=== PATIENT | female | born 1945 | race Caucasian/White ===

== ENCOUNTER 2016-11-18 16:16 | Emergency (ER) | payer MEDICARE, OTHER ==
[2016-11-18] MEDS ORDERED: ONDANSETRON 4 MG/2 ML VIAL IVP STA (16:40)
[2016-11-18] MEDS ORDERED: ONDANSETRON 4 MG/2 ML VIAL ONE (16:44)
[2016-11-18] MEDS ORDERED: SODIUM CHLORIDE 0.9% 500 ML IV ONE (18:39)
== END 2016-11-18 19:38 | disposition home or self-care (01) ==
DX: R11.2 Nausea with vomiting, unspecified (principal); R55 Syncope and collapse; I10 Essential (primary) hypertension; E78.00 Pure hypercholesterolemia, unspecified; J44.9 Chronic obstructive pulmonary disease, unspecified; E03.9 Hypothyroidism, unspecified; M81.0 Age-related osteoporosis without current pathological fracture; Z87.891 Personal history of nicotine dependence

== ENCOUNTER 2017-02-17 08:00 | Outpatient (CLI) | payer MEDICARE, OTHER ==
[2017-02-17 13:29] LABS: ALBUMIN/GLOBULIN RATIO 1.2 (1.0-2.2); CALCIUM 9.1 mg/dL (8.5-10.3); CREATININE 0.6 mg/dL (0.4-1.0); POTASSIUM 4.1 mmol/L (3.5-5.0)
== END 2017-02-17 23:59 ==
LOC: LAB.WCP 08:00
PROVIDERS: ATTEND Physician Assistant Medical
DX: Z51.81 Encounter for therapeutic drug level monitoring (principal)
CPT/HCPCS: 36415; 80053

== ENCOUNTER 2017-08-02 13:15 | Outpatient (CLI) | payer MEDICARE, OTHER ==
--- NOTE | 2017-08-03 11:27 | Mammography Report ---
DIGITAL BILATERAL SCREENING MAMMOGRAM: 08/02/2017 COMPARISON: Mammogram 08/26/2016. TECHNIQUE: Bilateral MLO and CC breast views. FINDINGS: The breast parenchyma is heterogeneously dense, which may limit the sensitivity of mammography. No mass, architectural distortion, or concerning cluster of microcalcifications are seen. IMPRESSION: 1. BIRADS CATEGORY 1. NEGATIVE. 2. RECOMMEND ANNUAL SCREENING MAMMOGRAM. STANDARD QUALIFYING STATEMENTS 1. This examination was reviewed with the aid of Computer-Aided Detection (CAD). 2. A negative or benign imaging report should not delay biopsy if clinically suspicious findings are present. Consider surgical consultation if warranted. More than 5% of cancers are not identified by imaging. 3. Dense breasts may obscure an underlying neoplasm. JOB #: [id number] EXT JOB #: [id number] ANIL
== END 2017-08-02 13:16 | disposition home or self-care (01) ==
LOC: DI.N 13:15
PROVIDERS: ATTEND Physician Assistant Medical
DX: Z12.31 Encounter for screening mammogram for malignant neoplasm of breast (principal)
CPT/HCPCS: 77067

== ENCOUNTER 2017-09-20 09:34 | Outpatient (CLI) | payer MEDICARE, OTHER ==
[2017-09-20 12:27] LABS: BASOPHILS # (AUTO) 0.1 10^3/uL (0.0-0.1); BASOPHILS % (AUTO) 0.7 %; EOSINOPHILS # (AUTO) 0.3 10^3/uL (0.0-0.7); EOSINOPHILS % (AUTO) 4.3 %; HGB - HEMOGLOBIN 13.2 g/dL (12.0-16.0); LYMPHOCYTES # (AUTO) 1.9 10^3/uL (1.5-3.5); LYMPHOCYTES % (AUTO) 25.1 %; MEAN CORPUSCULAR HEMOGLOBIN 32.4 pg (27.0-31.0); MEAN CORPUSCULAR HGB CONC 34.3 g/dL (32.0-36.0); MEAN CORPUSCULAR VOLUME 94.4 fL (81.0-99.0); MONOCYTES # (AUTO) 0.6 10^3/uL (0.0-1.0); MONOCYTES % (AUTO) 7.1 %; NEUTROPHILS # (AUTO) 4.8 10^3/uL (1.5-6.6); NEUTROPHILS % (AUTO) 62.8 %; PLT - PLATELET COUNT 247 10^3/uL (130-450); RED BLOOD COUNT 4.07 10^6/uL (4.20-5.40); RED CELL DISTRIBUTION WIDTH 12.9 % (12.0-15.0); WHITE BLOOD COUNT 7.7 x10^3/uL (4.8-10.8)
[2017-09-20 13:18] LABS: ALBUMIN 4.5 g/dL (3.2-5.5); ALBUMIN/GLOBULIN RATIO 1.1 (1.0-2.2); ALKALINE PHOSPHATASE 34 IU/L (42-121); ALT ALANINE AMINOTRANSFERASE 17 IU/L (10-60); AST ASPARTATE AMINOTRANSFERASE 23 IU/L (10-42); BILIRUBIN,TOTAL 0.9 mg/dL (0.2-1.0); BUN - BLOOD UREA NITROGEN 17 mg/dL (6-20); CALCIUM 9.4 mg/dL (8.5-10.3); CARBON DIOXIDE - CO2 26 mmol/L (21-32); CHLORIDE 99 mmol/L (101-111); CHOL/HDL RATIO 4.1 (<4.4); CHOLESTEROL 183 mg/dL; CREATININE 0.8 mg/dL (0.4-1.0); GFR - MDRD 70 (>89); GLUCOSE 108 mg/dL (70-100); HDL CHOLESTEROL 45 mg/dL; LDL CHOLESTEROL,CALCULATED 106 mg/dL; LDL/HDL RATIO 2.4 (<4.4); SODIUM 137 mmol/L (135-145); TOTAL PROTEIN 8.6 g/dL (6.7-8.2); VLDL CHOLESTEROL 32 mg/dL
== END 2017-09-20 09:35 | disposition home or self-care (01) ==
LOC: LAB.WCP 09:34
PROVIDERS: ATTEND Physician Assistant Medical
DX: Z51.81 Encounter for therapeutic drug level monitoring (principal); E55.9 Vitamin D deficiency, unspecified; E78.5 Hyperlipidemia, unspecified; M81.0 Age-related osteoporosis without current pathological fracture; I10 Essential (primary) hypertension
CPT/HCPCS: 36415; 80053; 80061; 82306; 83721; 84443; 85025

== ENCOUNTER 2017-10-14 08:06 | Outpatient (CLI) | payer MEDICARE, OTHER | END 2017-10-14 08:07 | disposition home or self-care (01) | LOC: DI 08:06 | PROVIDERS: ATTEND Physician Assistant Medical | DX: R06.00 Dyspnea, unspecified (principal); I08.3 Combined rheumatic disorders of mitral, aortic and tricuspid valves | CPT/HCPCS: 93306 ==

== ENCOUNTER 2017-10-18 09:11 | Outpatient (CLI) | payer MEDICARE, OTHER ==
[2017-10-18] MEDS ORDERED: ALBUTEROL NEB 2.5 MG/3 ML INH ONE (11:00)
== END 2017-10-18 09:12 | disposition home or self-care (01) ==
LOC: RT 09:11
PROVIDERS: ATTEND Physician Assistant Medical
DX: R06.00 Dyspnea, unspecified (principal)
CPT/HCPCS: 94060; 94729; J7613

== ENCOUNTER 2017-10-25 08:00 | Outpatient (CLI) | payer MEDICARE, OTHER ==
[2017-10-25 19:00] LABS: CALCIUM 8.5 mg/dL (8.5-10.3); CREATININE 0.9 mg/dL (0.4-1.0)
== END 2017-10-25 08:01 | disposition home or self-care (01) ==
LOC: LAB.WCP 08:00
PROVIDERS: ATTEND Physician Assistant Medical
DX: Z51.81 Encounter for therapeutic drug level monitoring (principal)
CPT/HCPCS: 36415; 80048

== ENCOUNTER 2017-10-28 09:27 | Outpatient (CLI) | payer MEDICARE, OTHER ==
[2017-10-28] MEDS ORDERED: IOPAMIDOL-300 100 ML VIAL IVP ONE ×2 (09:28→10:30)
[2017-10-28] MEDS ORDERED: IOPAMIDOL-300 100 ML VIAL ONE (09:46)
--- NOTE | 2017-10-30 00:49 | CT Report ---
EXAM: CT CHEST EXAM DATE: 10/28/2017 10:18 AM. CLINICAL HISTORY: Chronic cough, dyspnea on exertion. COMPARISONS: None. TECHNIQUE: Routine helical CT imaging was performed through the chest. IV contrast: 80 mL Isovue 300. Reconstructions: Coronal and sagittal. In accordance with CT protocol optimization, one or more of the following dose reduction techniques w ere utilized for this exam: automated exposure control, adjustment of mA and/or KV based on patient s ize, or use of iterative reconstructive technique. FINDINGS: Lungs and Pleura: No significant consolidation. Small atelectasis within the posterior costophrenic s ulcus region of the right lower lobe. Posterolaterally located right lower lobe nodule noted measurin g 4.4 mm (image 46 series 3). Left lower lobe atelectasis adjacent to the aorta noted. Central Airways: Visualized central airways are without suspicious filling defects. Chest Wall: No significant abnormality. Thyroid: No significant abnormality. Mediastinum: No significant abnormality. Heart: There is mild to moderate four-chamber cardiomegaly. No pericardial effusion. Aorta: Normal caliber. Upper Abdomen: Status post-cholecystectomy. Bones: Indeterminate small sclerotic lesion within the left inferior scapular tip (image 23 series 4) . This is difficult to characterize. Small sclerotic focus within the inferior aspect of the right gl enoid, probably a bone island. IMPRESSION: 1. No acute pulmonary abnormality. 2. Indeterminate 4.4 mm right lower lobe posterolateral nodule. Follow-up lung nodule as per the michelle mmendation guidelines below. Recommend follow-up of the described nodule(s) according to the following guidelines: Fleischner Society Recommendations 2017 MacMahon et al. Radiology 2017 Solid Nodules-Low Risk Patients: <6 mm (single or multiple) - No routine follow-up Solid Nodules-High Risk Patients: <6 mm (single or multiple) - CT at 12 months [facility] Referring Provider Line: [phone] SITE ID: [id number]
== END 2017-10-28 09:28 | disposition home or self-care (01) ==
LOC: DI 09:27
PROVIDERS: ATTEND Physician Assistant Medical
DX: R91.1 Solitary pulmonary nodule (principal)
CPT/HCPCS: 71260; Q9967

== ENCOUNTER 2018-02-14 08:00 | Outpatient (CLI) | payer MEDICARE, OTHER ==
[2018-02-14 18:40] LABS: BASOPHILS # (AUTO) 0.1 10^3/uL (0.0-0.1); BASOPHILS % (AUTO) 0.9 %; EOSINOPHILS # (AUTO) 0.2 10^3/uL (0.0-0.7); EOSINOPHILS % (AUTO) 3.7 %; HGB - HEMOGLOBIN 13.2 g/dL (12.0-16.0); LYMPHOCYTES # (AUTO) 1.8 10^3/uL (1.5-3.5); LYMPHOCYTES % (AUTO) 30.5 %; MEAN CORPUSCULAR HEMOGLOBIN 32.9 pg (27.0-31.0); MEAN CORPUSCULAR HGB CONC 33.5 g/dL (32.0-36.0); MEAN CORPUSCULAR VOLUME 98.2 fL (81.0-99.0); MEAN PLATELET VOLUME 7.1 fL (7.9-10.8); MONOCYTES # (AUTO) 0.5 10^3/uL (0.0-1.0); MONOCYTES % (AUTO) 8.7 %; NEUTROPHILS # (AUTO) 3.4 10^3/uL (1.5-6.6); NEUTROPHILS % (AUTO) 56.2 %; PLT - PLATELET COUNT 223 10^3/uL (130-450); RED BLOOD COUNT 4.02 10^6/uL (4.20-5.40); RED CELL DISTRIBUTION WIDTH 12.8 % (12.0-15.0)
[2018-02-14 18:59] LABS: ALBUMIN 4.6 g/dL (3.2-5.5); ALBUMIN/GLOBULIN RATIO 1.2 (1.0-2.2); ALKALINE PHOSPHATASE 31 IU/L (42-121); ALT ALANINE AMINOTRANSFERASE 22 IU/L (10-60); AST ASPARTATE AMINOTRANSFERASE 27 IU/L (10-42); BILIRUBIN,TOTAL 1.1 mg/dL (0.2-1.0); BUN - BLOOD UREA NITROGEN 14 mg/dL (6-20); CALCIUM 8.9 mg/dL (8.5-10.3); CARBON DIOXIDE - CO2 26 mmol/L (21-32); CHLORIDE 105 mmol/L (101-111); CHOL/HDL RATIO 3.2 (<4.4); CHOLESTEROL 164 mg/dL; CREATININE 0.8 mg/dL (0.4-1.0); GFR - MDRD 70 (>89); GLUCOSE 96 mg/dL (70-100); HDL CHOLESTEROL 52 mg/dL; LDL CHOLESTEROL,CALCULATED 85 mg/dL; LDL/HDL RATIO 1.6 (<4.4); SODIUM 141 mmol/L (135-145); TOTAL PROTEIN 8.4 g/dL (6.7-8.2); VLDL CHOLESTEROL 27 mg/dL
== END 2018-02-14 08:01 ==
LOC: LAB.WCP 08:00
PROVIDERS: ATTEND Family Medicine
DX: E78.5 Hyperlipidemia, unspecified (principal); I10 Essential (primary) hypertension
CPT/HCPCS: 36415; 80053; 80061; 83721; 85025

== ENCOUNTER 2018-02-21 08:00 | Outpatient (CLI) | payer MEDICARE, OTHER | END 2018-02-21 08:01 | disposition home or self-care (01) | LOC: LAB.WCP 08:00 | PROVIDERS: ATTEND Family Medicine | DX: R25.2 Cramp and spasm (principal) | CPT/HCPCS: 36415; 83735 ==

== ENCOUNTER 2018-08-08 15:42 | Outpatient (CLI) | payer MEDICARE, OTHER ==
--- NOTE | 2018-08-14 10:35 | Mammography Report ---
Reason: SCREENING MAMMO Procedure Date: 08/08/2018 Accession Number: [id number] / [id number] Procedure: MGN - Screening Mammo Dig Bilat CPT Code: FULL RESULT: EXAM: Screening Mammo Dig Bilat DATE: 08/08/2018 4:26 PM CLINICAL HISTORY: Screening. Family history breast cancer sister age 59. No reported personal history of breast cancer. TECHNIQUE: Bilateral CC and MLO views were obtained. COMPARISON: 08/02/2017 through 07/11/2014 FINDINGS: The breasts demonstrate heterogeneously dense fibroglandular parenchyma bilaterally. Bilateral breasts: There are no suspicious masses, calcifications or areas of distortion. IMPRESSION: Negative examination RECOMMENDATION: Routine annual screening unless otherwise clinically indicated. BI-RADS CATEGORY 1: Negative STANDARD QUALIFYING STATEMENTS: 1. This examination was reviewed with the aid of Computer-Aided Detection (CAD). 2. A negative or benign imaging report should not preclude biopsy if clinically suspicious findings are present. 3. Dense breasts may obscure an underlying neoplasm. 4. This examination was reviewed without the aid of 3D breast imaging (tomosynthesis).
== END 2018-08-08 15:43 | disposition home or self-care (01) ==
LOC: DI.N 15:42
DX: Z12.31 Encounter for screening mammogram for malignant neoplasm of breast (principal); Z80.3 Family history of malignant neoplasm of breast
CPT/HCPCS: 77067

== ENCOUNTER 2018-09-28 08:00 | Outpatient (CLI) | payer MEDICARE, OTHER ==
[2018-09-28 13:26] LABS: BILIRUBIN,URINE NEGATIVE (NEGATIVE); GLUCOSE, URINE (UA) NEGATIVE (NEGATIVE); KETONES,URINE (UA) NEGATIVE (NEGATIVE); LEUKOCYTE ESTERASE, URINE NEGATIVE (NEGATIVE); NITRITE,URINE NEGATIVE (NEGATIVE); OCCULT BLOOD,URINE NEGATIVE (NEGATIVE); PROTEIN,URINE NEGATIVE (NEGATIVE); UROBILINOGEN,URINE 0.2 (NORMAL) E.U./dL (NORMAL)
[2018-09-28 13:28] LABS: BASOPHILS % (AUTO) 0.4 %; EOSINOPHILS # (AUTO) 0.3 10^3/uL (0.0-0.7); EOSINOPHILS % (AUTO) 5.5 %; HGB - HEMOGLOBIN 12.8 g/dL (12.0-16.0); LYMPHOCYTES # (AUTO) 1.4 10^3/uL (1.5-3.5); LYMPHOCYTES % (AUTO) 26.7 %; MEAN CORPUSCULAR HEMOGLOBIN 32.4 pg (27.0-31.0); MEAN CORPUSCULAR HGB CONC 34.3 g/dL (32.0-36.0); MEAN CORPUSCULAR VOLUME 94.5 fL (81.0-99.0); MEAN PLATELET VOLUME 7.5 fL (7.9-10.8); MONOCYTES # (AUTO) 0.6 10^3/uL (0.0-1.0); MONOCYTES % (AUTO) 10.7 %; NEUTROPHILS % (AUTO) 56.7 %; PLT - PLATELET COUNT 200 10^3/uL (130-450); RED BLOOD COUNT 3.95 10^6/uL (4.20-5.40); WHITE BLOOD COUNT 5.3 x10^3/uL (4.8-10.8)
[2018-09-28 13:28] LABS: CLARITY,URINE CLEAR (CLEAR)
[2018-09-28 13:45] LABS: BACTERIA,URINE Rare /HPF (None Seen); RBC,URINE 0-5 /HPF (0-5); SQUAMOUS EPITHELIAL CELL,UR RARE Squamous (<= Few)
[2018-09-28 14:14] LABS: ALBUMIN 4.3 g/dL (3.2-5.5); ALBUMIN/GLOBULIN RATIO 1.2 (1.0-2.2); ALKALINE PHOSPHATASE 34 IU/L (42-121); ALT ALANINE AMINOTRANSFERASE 24 IU/L (10-60); AST ASPARTATE AMINOTRANSFERASE 29 IU/L (10-42); BUN - BLOOD UREA NITROGEN 15 mg/dL (6-20); CALCIUM 9.2 mg/dL (8.5-10.3); CARBON DIOXIDE - CO2 24 mmol/L (21-32); CHLORIDE 107 mmol/L (101-111); CHOL/HDL RATIO 3.3 (<4.4); CHOLESTEROL 182 mg/dL; CREATININE 0.7 mg/dL (0.4-1.0); GFR - MDRD 82 (>89); GLUCOSE 103 mg/dL (70-100); HDL CHOLESTEROL 55 mg/dL; LDL CHOLESTEROL,CALCULATED 112 mg/dL; SODIUM 137 mmol/L (135-145); VLDL CHOLESTEROL 15 mg/dL
== END 2018-09-28 23:59 | disposition home or self-care (01) ==
LOC: LAB.WCP 08:00
PROVIDERS: ATTEND Family Medicine
DX: I10 Essential (primary) hypertension (principal); R39.11 Hesitancy of micturition; R00.2 Palpitations; I51.7 Cardiomegaly; J44.9 Chronic obstructive pulmonary disease, unspecified; M81.0 Age-related osteoporosis without current pathological fracture; E78.5 Hyperlipidemia, unspecified; I35.1 Nonrheumatic aortic (valve) insufficiency; R79.9 Abnormal finding of blood chemistry, unspecified
CPT/HCPCS: 36415; 80053; 80061; 81001; 83721; 84443; 85025; 87086

== ENCOUNTER 2019-03-26 08:00 | Outpatient (CLI) | payer MEDICARE, OTHER | END 2019-03-26 23:59 | disposition home or self-care (01) | LOC: LAB.R 08:00 | PROVIDERS: ATTEND Family Medicine | DX: R19.7 Diarrhea, unspecified (principal) | CPT/HCPCS: 81599; 82274; 83630; 87045; 87046; 87177; 87209; 87493 ==

== ENCOUNTER 2019-03-28 08:00 | Outpatient (CLI) | payer MEDICARE, OTHER | END 2019-03-28 23:59 | disposition home or self-care (01) | LOC: LAB.R 08:00 | PROVIDERS: ATTEND Family Medicine | DX: R19.7 Diarrhea, unspecified (principal) | CPT/HCPCS: 81599; 82274; 87045; 87046; 87177; 87209; 87329 ==

== ENCOUNTER 2019-04-01 08:00 | Outpatient (CLI) | payer MEDICARE, OTHER | END 2019-04-01 23:59 | disposition home or self-care (01) | LOC: LAB.R 08:00 | DX: R19.7 Diarrhea, unspecified (principal) | CPT/HCPCS: 82274 ==

== ENCOUNTER 2019-04-02 08:00 | Outpatient (CLI) | payer MEDICARE, OTHER | END 2019-04-02 23:59 | disposition home or self-care (01) | LOC: LAB.R 08:00 | PROVIDERS: ATTEND Family Medicine | DX: R19.7 Diarrhea, unspecified (principal) ==

== ENCOUNTER 2019-04-03 08:00 | Outpatient (CLI) | payer MEDICARE, OTHER ==
[2019-04-03 12:27] LABS: BASOPHILS % (AUTO) 0.7 %; EOSINOPHILS # (AUTO) 0.3 10^3/uL (0.0-0.7); EOSINOPHILS % (AUTO) 4.9 %; HGB - HEMOGLOBIN 12.9 g/dL (12.0-16.0); LYMPHOCYTES # (AUTO) 1.7 10^3/uL (1.5-3.5); LYMPHOCYTES % (AUTO) 29.1 %; MEAN CORPUSCULAR HEMOGLOBIN 32.7 pg (27.0-31.0); MEAN CORPUSCULAR HGB CONC 33.9 g/dL (32.0-36.0); MEAN CORPUSCULAR VOLUME 96.5 fL (81.0-99.0); MEAN PLATELET VOLUME 9.4 fL (7.9-10.8); MONOCYTES # (AUTO) 0.5 10^3/uL (0.0-1.0); MONOCYTES % (AUTO) 8.3 %; NEUTROPHILS # (AUTO) 3.3 10^3/uL (1.5-6.6); NEUTROPHILS % (AUTO) 56.8 %; PLT - PLATELET COUNT 202 10^3/uL (130-450); RED BLOOD COUNT 3.95 10^6/uL (4.20-5.40); RED CELL DISTRIBUTION WIDTH 12.7 % (12.0-15.0); WHITE BLOOD COUNT 5.8 x10^3/uL (4.8-10.8)
[2019-04-03 12:45] LABS: ALBUMIN 4.4 g/dL (3.2-5.5); ALBUMIN/GLOBULIN RATIO 1.3 (1.0-2.2); ALKALINE PHOSPHATASE 58 IU/L (42-121); ALT ALANINE AMINOTRANSFERASE 19 IU/L (10-60); AST ASPARTATE AMINOTRANSFERASE 24 IU/L (10-42); BILIRUBIN,TOTAL 0.8 mg/dL (0.2-1.0); BUN - BLOOD UREA NITROGEN 16 mg/dL (6-20); CALCIUM 9.5 mg/dL (8.5-10.3); CARBON DIOXIDE - CO2 26 mmol/L (21-32); CHLORIDE 107 mmol/L (101-111); CHOL/HDL RATIO 3.2 (<4.4); CHOLESTEROL 184 mg/dL; CREATININE 0.7 mg/dL (0.4-1.0); GFR - MDRD 82 (>89); GLUCOSE 101 mg/dL (70-100); HDL CHOLESTEROL 57 mg/dL; LDL CHOLESTEROL,CALCULATED 108 mg/dL; LDL/HDL RATIO 1.9 (<4.4); SODIUM 143 mmol/L (135-145); TOTAL PROTEIN 7.9 g/dL (6.7-8.2); VLDL CHOLESTEROL 19 mg/dL
== END 2019-04-03 23:59 | disposition home or self-care (01) ==
LOC: LAB.WCP 08:00
PROVIDERS: ATTEND Family Medicine
DX: I10 Essential (primary) hypertension (principal); E78.5 Hyperlipidemia, unspecified
CPT/HCPCS: 36415; 80053; 80061; 83721; 85025

== ENCOUNTER 2019-09-20 08:46 | Outpatient (CLI) | payer MEDICARE, OTHER ==
--- NOTE | 2019-09-23 13:17 | Mammography Report ---
Reason: ROUTINE MAMMO Procedure Date: 09/20/2019 Accession Number: [id number] / [id number] Procedure: MGN - Screening Mammo Dig Bilat CPT Code: Final Report FULL RESULT: EXAM: Screening Mammo Dig Bilat DATE: 09/20/2019 9:46 AM CLINICAL HISTORY: Screening encounter. Family history of breast cancer in a sister at the age of 40. TECHNIQUE: (B) - Bilateral CC, laterally exaggerated CC, MLO views were obtained. COMPARISON: 08/08/2018 through 03/18/2011. PARENCHYMAL PATTERN: (D) - The breast(s) demonstrate(s) heterogeneously dense fibroglandular parenchyma. FINDINGS: There are no suspicious masses, calcifications, or areas of distortion. IMPRESSION: Negative examination. BI-RADS category 1. RECOMMENDATION: (ANNUAL) - Recommend routine annual screening mammography. BI-RADS CATEGORY: (1) - Negative. STANDARD QUALIFYING STATEMENTS: 1. This examination was not reviewed with the aid of Computer-Aided Detection (CAD). 2. A negative or benign imaging report should not preclude biopsy if clinically suspicious findings are present. 3. Dense breasts may obscure an underlying neoplasm. 4. This examination was reviewed without the aid of 3D breast imaging (tomosynthesis).
== END 2019-09-20 08:47 | disposition home or self-care (01) ==
LOC: DI.N 08:46
DX: Z12.31 Encounter for screening mammogram for malignant neoplasm of breast (principal); Z80.3 Family history of malignant neoplasm of breast
CPT/HCPCS: 77067

== ENCOUNTER 2019-12-20 08:57 | Outpatient (CLI) | payer MEDICARE, OTHER ==
--- NOTE | 2019-12-23 10:14 | CT Report ---
Reason: PULMONARY NODULE Procedure Date: 12/20/2019 Accession Number: [id number] / [id number] Procedure: CT - CHEST WO CPT Code: Final Report FULL RESULT: EXAM: CT CHEST EXAM DATE: 12/20/2019 09:16 AM. CLINICAL HISTORY: Pulmonary nodule. COMPARISONS: CT CHEST W/ 10/28/2017. TECHNIQUE: Routine helical CT imaging was performed through the chest. IV contrast: None. Reconstructions: Coronal and sagittal. In accordance with CT protocol optimization, one or more of the following dose reduction techniques were utilized for this exam: automated exposure control, adjustment of mA and/or KV based on patient size, or use of iterative reconstructive technique. FINDINGS: Lungs/Pleura: No consolidation, effusion, edema or pneumothorax. Mild bronchial wall thickening. No endobronchial lesion. Airway remains patent. Previously noted posterolateral right lower lobe nodularity appears more bandlike and more compatible with scarring than the nodule on the current study. Medial segment right middle lobe and dependent bilateral atelectatic changes are noted. Stable 0.2 cm posterolateral right upper lobe nodule on image 4, 99. Stable 0.2 cm subpleural posterior left lower lobe nodule on image 4, 121. No new or enlarging pulmonary nodule or mass is identified. Mediastinum: Homogeneous enhancement of the thyroid gland. No thyroid nodule or mass. No supraclavicular or axillary lymphadenopathy identified. Mild cardiac enlargement. No pericardial effusion or adenopathy. Mild coronary artery calcifications are noted. Bones: Possible bone islands in the inferior left scapular tip and inferior margin of the right glenoid. No concerning osteoblastic or osteolytic lesions. Visualized Abdomen: Gallbladder is surgically absent. Other: None. IMPRESSION: 1. Stable 0.2 cm left lower lobe and 0.2 cm right upper lobe pulmonary nodules. Previously noted 0.4 cm subpleural right lower lobe nodule appears more bandlike on the current study and probably represents scarring. No new or enlarging pulmonary mass or nodule. 2. No adenopathy. 3. Mild cardiac enlargement. Coronary artery disease. Recommend follow-up of the described nodule(s) according to the following guidelines: Fleischner Society Recommendations 2017 MacMahon et al. Radiology 2017 Solid Nodules-Low Risk Patients: <6 mm (single or multiple) - No routine follow-up* Solid Nodules-High Risk Patients: <6 mm (single or multiple) -Optional CT at 12 months* [facility]
== END 2019-12-20 08:58 | disposition home or self-care (01) ==
LOC: DI 08:57
PROVIDERS: ATTEND Family Medicine
DX: R91.8 Other nonspecific abnormal finding of lung field (principal); I51.7 Cardiomegaly; I25.10 Atherosclerotic heart disease of native coronary artery without angina pectoris; Z90.49 Acquired absence of other specified parts of digestive tract
CPT/HCPCS: 71250

== ENCOUNTER 2020-03-07 08:29 | Emergency (ER) | payer MEDICARE, OTHER ==
[2020-03-07 08:44] VITALS: BP 141/62
--- NOTE | 2020-03-07 09:23 | ED Physician Documentation ---
PD HPI SKIN - Stated complaint Stated Complaint: RASH - Chief complaint Chief Complaint: General - History obtained from History obtained from: Patient, Family - History of Present Illness Timing - onset: How many days ago (5) Timing - duration: Days (5) Timing - details: Abrupt onset, Still present Location: Abdomen, Back Quality / character: Itchy, Raised, Swelling Improved by: Oral steroids Associated symptoms: No: Fever, Myalgias, Joint pain, Headache, Dyspnea, Abd pain, N/V/D, Urinary sx Contributing factors: Exposed to food Similar symptoms before: Diagnosis (shrimp allergy) Recently seen: Clinic - Additional information Additional information: 74-year-old 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 She has not taking any antihistamine. She has had recurrence of her symptoms after taking the prednisone each day. She has come to the emergency department today with itching. Each time she itches she has hives developed where she was itching. Review of Systems Constitutional: denies: Fever Eyes: denies: Decreased vision Ears: denies: Ear pain Nose: denies: Rhinorrhea / runny nose, Congestion Throat: denies: Sore throat Cardiac: denies: Chest pain / pressure, Palpitations Respiratory: denies: Dyspnea, Cough GI: denies: Abdominal Pain, Nausea, Vomiting : denies: Dysuria Skin: reports: Rash Musculoskeletal: denies: Neck pain, Back pain, Extremity pain Neurologic: denies: Generalized weakness, Focal weakness, Numbness PD PAST MEDICAL HISTORY - Past Medical History Cardiovascular: Hypertension, High cholesterol, Other Respiratory: COPD Endocrine/Autoimmune: HyPOthyroidism GI: None : None HEENT: None Psych: None Musculoskeletal: Osteoporosis - Past Surgical History 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, 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 - Present Medications Home Medications: Ambulatory Orders Medication Instructions Recorded Confirmed Metoprolol Succinate [Toprol Xl] 50 mg PO BID 01/09/15 03/21/18 Vit D3-Vit K/Berberine/Hops 1,000 each PO DAILY 01/09/15 03/21/18 [Ostera Tablet] Albuterol Sulfate [Proair Hfa 8.5 gm IH Q4HR PRN 03/24/17 03/21/18 Inhaler] Felodipine [Felodipine ER] 5 mg PO DAILY 03/24/17 03/21/18 - Allergies Allergies/Adverse Reactions: Allergies Allergy/AdvReac Type Severity Reaction Status Date / Time seafood Allergy Hives Uncoded 03/24/17 16:21 - Social History Does the pt smoke?: No Smoking Status: Never smoker Does the pt drink ETOH?: No Does the pt have substance abuse?: No - Immunizations Immunizations are current?: Yes - POLST Patient has POLST: No PD ED PE NORMAL - Vitals Vital signs reviewed: Yes (Hypertensive mild) - General General: Alert and oriented X 3, No acute distress, Well developed/nourished - HEENT HEENT: Atraumatic, PERRL, EOMI - Neck Neck: Supple, no meningeal sign - Cardiac Cardiac: RRR, No murmur - Respiratory Respiratory: No respiratory distress, Clear bilaterally - Derm Derm: Normal color, Warm and dry, Other (There are urticaria over the trunk and the back and on the abdomen and areas where the patient has itched. There is no specific rash to the skin otherwise.) - Extremities Extremities: No deformity, No edema, No calf tenderness / cord - Neuro Neuro: Alert and oriented X 3, clinic office coordinator 2-12 intact, No motor deficit, No sensory deficit, Normal speech Eye Opening: Spontaneous Motor: Obeys Commands Verbal: Oriented GCS Score: 15 - Psych Psych: Normal mood, Normal affect Results - Vitals Vitals: Vital Signs - 24 hr 03/07/20 08:42 Temperature 36.8 C Heart Rate 66 Respiratory 16 Rate Blood Pressure 141/62 H O2 Saturation 95 Oxygen O2 Source Room air PD MEDICAL DECISION MAKING - ED course Complexity details: reviewed old records, re-evaluated patient, considered differential, d/w patient, d/w family ED course: Previously well 74-year-old female with a history of COPD and an allergy to shrimp has had shrimp reaction 3 times previously. She has been placed on some prednisone and she continues to have itching. She is not on any antihistamine and today we have given her a dose of dexamethasone and included the Benadryl. I have asked the patient to continue her taper of the prednisone to start up again tomorrow and to use Benadryl 25 to 50 mg every 6 hours for the next 2 days. Departure - Departure Disposition: 01 Home, Self Care Clinical Impression: Food allergic skin reaction Condition: Stable Instructions: ED Allergic React Food, Urticaria Follow-Up: Araceli Collins ARNP [Primary Care Provider] - Comments: For the itching take Benadryl 25 to 50 mg every 6 hours for the next 2 days. Restart your prednisone taper tomorrow and start this with 2 pills tomorrow and 2 pills the next day and then 1 pill each day.
[2020-03-07] MEDS ORDERED: DEXAMETHASONE 10 MG/ML VIAL PO STA (09:27)
[2020-03-07] MEDS ORDERED: diphenhydrAMINE 25 MG CAPSULE PO STA (09:27)
[2020-03-07] MEDS ORDERED: CHERRY SYRUP 10 ML UDC PO ONE (09:27)
== END 2020-03-07 09:56 | disposition home or self-care (01) ==
LOC: ED 08:29
DX: T78.1XXA Other adverse food reactions, not elsewhere classified, initial encounter (principal); L50.0 Allergic urticaria; X58.XXXA Exposure to other specified factors, initial encounter; Z91.013 Allergy to seafood; I10 Essential (primary) hypertension; J44.9 Chronic obstructive pulmonary disease, unspecified
CPT/HCPCS: 99282; 99284; A9270

== ENCOUNTER 2020-11-02 08:42 | Outpatient (CLI) | payer MEDICARE, OTHER ==
[2020-11-02 12:01] LABS: ALBUMIN 4.7 g/dL (3.2-5.5); ALBUMIN/GLOBULIN RATIO 1.3 (1.0-2.2); ALKALINE PHOSPHATASE 54 IU/L (42-121); ALT ALANINE AMINOTRANSFERASE 20 IU/L (10-60); AST ASPARTATE AMINOTRANSFERASE 23 IU/L (10-42); BILIRUBIN,TOTAL 0.9 mg/dL (0.2-1.0); BUN - BLOOD UREA NITROGEN 18 mg/dL (6-20); CALCIUM 9.4 mg/dL (8.5-10.3); CARBON DIOXIDE - CO2 25 mmol/L (21-32); CHLORIDE 105 mmol/L (101-111); CHOL/HDL RATIO 3.4 (<4.4); CHOLESTEROL 204 mg/dL; CREATININE 0.7 mg/dL (0.4-1.0); GFR - MDRD 81 (>89); GLUCOSE 104 mg/dL (70-100); HDL CHOLESTEROL 60 mg/dL; LDL CHOLESTEROL,CALCULATED 125 mg/dL; LDL/HDL RATIO 2.1 (<4.4); POTASSIUM 3.6 mmol/L (3.5-5.0); SODIUM 140 mmol/L (135-145); TOTAL PROTEIN 8.4 g/dL (6.7-8.2); TRIGLYCERIDES 94 mg/dL; VLDL CHOLESTEROL 19 mg/dL
[2020-11-02 12:06] LABS: BASOPHILS % (AUTO) 0.8 %; EOSINOPHILS # (AUTO) 0.2 10^3/uL (0.0-0.7); EOSINOPHILS % (AUTO) 3.8 %; HCT - HEMATOCRIT 38.3 % (37.0-47.0); HGB - HEMOGLOBIN 12.8 g/dL (12.0-16.0); LYMPHOCYTES # (AUTO) 1.6 10^3/uL (1.5-3.5); LYMPHOCYTES % (AUTO) 30.9 %; MEAN CORPUSCULAR HEMOGLOBIN 31.8 pg (27.0-31.0); MEAN CORPUSCULAR HGB CONC 33.4 g/dL (32.0-36.0); MEAN CORPUSCULAR VOLUME 95.3 fL (81.0-99.0); MEAN PLATELET VOLUME 9.3 fL (7.9-10.8); MONOCYTES # (AUTO) 0.5 10^3/uL (0.0-1.0); MONOCYTES % (AUTO) 9.6 %; NEUTROPHILS # (AUTO) 2.9 10^3/uL (1.5-6.6); NEUTROPHILS % (AUTO) 54.5 %; PLT - PLATELET COUNT 215 10^3/uL (130-450); RED BLOOD COUNT 4.02 10^6/uL (4.20-5.40); RED CELL DISTRIBUTION WIDTH 12.2 % (12.0-15.0); WHITE BLOOD COUNT 5.3 x10^3/uL (4.8-10.8)
== END 2020-11-02 23:59 | disposition home or self-care (01) ==
LOC: LAB.WCP 08:42
PROVIDERS: ATTEND Family Medicine
DX: I10 Essential (primary) hypertension (principal)
CPT/HCPCS: 36415; 80053; 80061; 83721; 85025

== ENCOUNTER 2020-12-03 15:31 | Outpatient (CLI) | payer MEDICARE, OTHER ==
--- NOTE | 2020-12-04 07:48 | Mammography Report ---
BILATERAL DIGITAL SCREENING MAMMOGRAM: 12/03/2020 CLINICAL: Family history of breast cancer. Routine screening. Comparison is made to exams dated: 09/20/2019 mammogram, 08/08/2018 mammogram, 08/02/2017 mammogram, mammogram, 07/15/2015 mammogram, and [facility] The tissue of both breasts is heterogeneously dense. This may lower the sensitivity of mammography. No significant masses, calcifications, or other findings are seen in either breast. There has been no significant interval change. IMPRESSION: NEGATIVE There is no mammographic evidence of malignancy. A 1 year screening mammogram is recommended. This exam was interpreted at Station ID: [id number]. NOTE: For mammograms, a report in lay terms will be sent to the patient. Approximately 15% of breast malignancies will not be visualized mammographically. In the management of a palpable breast mass, a negative mammogram must not discourage biopsy of a clinically suspicious lesion. Electronically Signed By: Juan Alberto Finley M.D. ddp/penmaribeth:12/03/2020 16:11:24 ACR BI-RADS Category 1: Negative 3341F PARENCHYMAL PATTERN: (D) - The breast(s) demonstrate(s) heterogeneously dense fibroglandular tejinder gonzalez. BI-RADS CATEGORY: (1) - 1 RECOMMENDATION: (ANNUAL) - Recommend routine annual screening mammography. [id number] 1 year screening LATERALITY: (B)
== END 2020-12-03 15:32 | disposition home or self-care (01) ==
LOC: DI.N 15:31
DX: Z12.31 Encounter for screening mammogram for malignant neoplasm of breast (principal); Z80.3 Family history of malignant neoplasm of breast

== ENCOUNTER 2021-12-31 15:07 | Outpatient (CLI) | payer MEDICARE, OTHER ==
--- NOTE | 2021-12-31 15:58 | DEXA Report ---
PROCEDURE: Dexa Spine and/or Hip INDICATIONS: OSTEOPENIA TECHNIQUE: Dual energy x-ray absorptiometry (DXA) was performed on a DreamDry System. Regions measur ed are the AP Spine, femoral neck, and if needed forearm. COMPARISON: February 22, 2016 FINDINGS: Lumbar Spine: Bone Mineral Density 0.923 g/cm/cm,T score -2.1, osteopenia; -4% change Left Hip: Bone Mineral Density 0.813 g/cm/cm,T score -1.5, osteopenia; -8.5% change Left Femoral Neck: Bone Mineral Density 0.663 g/cm/cm, T score -2.7, osteoporosis (T score greater or equal to -1.0: NORMAL) (T score from -1.1 to -2.4: OSTEOPENIA) (T score less than or equal to -2.5 to: OSTEOPOROSIS) Impression: Bone mineral density as detailed above. Patients with diagnosis of osteoporosis or osteopenia should have regular bone mineral density assess ment. For those eligible for Medicare, routine testing is allowed once every 2 years. Testing frequ ency can be increased for patients who have rapidly progressing disease or for those who are receivin g medical therapy to restore bone mass. Reviewed by: Stanislav Garcia MD on 12/31/2021 3:57 PM PDT Approved by: Stanislav Garcia MD on 12/31/2021 3:57 PM PDT Station ID: [id number]
== END 2021-12-31 15:08 | disposition home or self-care (01) ==
LOC: DI 15:07
PROVIDERS: ATTEND Family Medicine
DX: M81.0 Age-related osteoporosis without current pathological fracture (principal)

== ENCOUNTER 2022-06-14 09:32 | Outpatient (CLI) | payer MEDICARE, OTHER ==
--- NOTE | 2022-06-15 12:13 | Mammography Report ---
BILATERAL DIGITAL SCREENING MAMMOGRAM: 06/14/2022 CLINICAL: Family history of breast cancer. Routine screening. Comparison is made to exams dated: 12/03/2020 mammogram, 09/20/2019 mammogram, 08/08/2018 mammogram, mammogram, 08/26/2016 mammogram, and 07/15/2015 mammogram - [facility]. Both breasts are heterogeneously dense, which may obscure small masses (category c / 51-75% glandula r tissue). No significant masses, calcifications, or other findings are seen in either breast. There has been no significant interval change. IMPRESSION: NEGATIVE There is no mammographic evidence of malignancy. A 1 year screening mammogram is recommended. Based on the Tyrer Cuzick model (a risk assessment model) the patients lifetime risk is 5.3% and her 10 year risk is 0.0%. According to the ACR, ACS, and NCCN guidelines, an annual breast MRI exam brittany g with mammogram is recommended if the patients lifetime risk is 20% or greater. This exam was interpreted at Station ID: [id number]. NOTE: For mammograms, a report in lay terms will be sent to the patient. Approximately 15% of breast malignancies will not be visualized mammographically. In the management of a palpable breast mass, a negative mammogram must not discourage biopsy of a clinically suspicious lesion. Electronically Signed By: Angel Vaz M.D. aty/:06/14/2022 23:45:47 ACR BI-RADS Category 1: Negative 3341F PARENCHYMAL PATTERN: (D) - The breast(s) demonstrate(s) heterogeneously dense fibroglandular tejinder gonzalez. BI-RADS CATEGORY: (1) - 1 RECOMMENDATION: (ANNUAL) - Recommend routine annual screening mammography. [id number] 1 year screening LATERALITY: (B)
== END 2022-06-14 09:33 | disposition home or self-care (01) ==
LOC: DI.N 09:32
DX: Z12.31 Encounter for screening mammogram for malignant neoplasm of breast (principal)

== ENCOUNTER 2022-11-03 08:33 | Outpatient (CLI) | payer MEDICARE, OTHER ==
[2022-11-03 12:05] LABS: BASOPHILS # (AUTO) 0.1 10^3/uL (0.0-0.1); EOSINOPHILS # (AUTO) 0.2 10^3/uL (0.0-0.7); EOSINOPHILS % (AUTO) 4.3 %; HCT - HEMATOCRIT 38.2 % (37.0-47.0); LYMPHOCYTES % (AUTO) 20.1 %; MEAN CORPUSCULAR HEMOGLOBIN 32.7 pg (27.0-31.0); MEAN CORPUSCULAR VOLUME 96.2 fL (81.0-99.0); MEAN PLATELET VOLUME 9.7 fL (7.9-10.8); MONOCYTES # (AUTO) 0.5 10^3/uL (0.0-1.0); MONOCYTES % (AUTO) 11.1 %; NEUTROPHILS # (AUTO) 3.1 10^3/uL (1.5-6.6); NEUTROPHILS % (AUTO) 63.1 %; PLT - PLATELET COUNT 181 10^3/uL (130-450); RED BLOOD COUNT 3.97 10^6/uL (4.20-5.40); RED CELL DISTRIBUTION WIDTH 12.8 % (12.0-15.0); WHITE BLOOD COUNT 4.9 x10^3/uL (4.8-10.8)
[2022-11-03 13:02] LABS: ALBUMIN 4.4 g/dL (3.2-5.5); ALBUMIN/GLOBULIN RATIO 1.2 (1.0-2.2); ALKALINE PHOSPHATASE 43 IU/L (42-121); ALT ALANINE AMINOTRANSFERASE 18 IU/L (10-60); AST ASPARTATE AMINOTRANSFERASE 24 IU/L (10-42); BUN - BLOOD UREA NITROGEN 15 mg/dL (6-20); CALCIUM 9.7 mg/dL (8.5-10.3); CARBON DIOXIDE - CO2 29 mmol/L (21-32); CHLORIDE 107 mmol/L (101-111); CHOL/HDL RATIO 3.1 (<4.4); CHOLESTEROL 195 mg/dL; CREATININE 0.6 mg/dL (0.4-1.0); GFR - MDRD 97 (>89); GLUCOSE 103 mg/dL (70-100); HDL CHOLESTEROL 63 mg/dL; LDL CHOLESTEROL,CALCULATED 120 mg/dL; LDL/HDL RATIO 1.9 (<4.4); SODIUM 144 mmol/L (135-145); TOTAL PROTEIN 8.1 g/dL (6.7-8.2); TRIGLYCERIDES 61 mg/dL; VLDL CHOLESTEROL 12 mg/dL
== END 2022-11-03 08:34 | disposition home or self-care (01) ==
LOC: LAB.N 08:33
PROVIDERS: ATTEND Physician Assistant
DX: I10 Essential (primary) hypertension (principal); E78.5 Hyperlipidemia, unspecified
CPT/HCPCS: 36415; 80053; 80061; 83721; 85025

== ENCOUNTER 2023-08-31 10:30 | Outpatient (CLI) | payer MEDICARE, OTHER ==
[2023-08-31 18:00] LABS: CHOL/HDL RATIO 3.2 (<4.4); CHOLESTEROL 198 mg/dL; HDL CHOLESTEROL 62 mg/dL; LDL CHOLESTEROL,CALCULATED 118 mg/dL; LDL/HDL RATIO 1.9 (<4.4); TRIGLYCERIDES 90 mg/dL (48-352); VLDL CHOLESTEROL 18 mg/dL
== END 2023-08-31 10:31 | disposition home or self-care (01) ==
LOC: LAB.N 10:30
PROVIDERS: ATTEND Physician Assistant
DX: E78.5 Hyperlipidemia, unspecified (principal)
CPT/HCPCS: 36415; 80061; 83721

== ENCOUNTER 2023-11-23 10:21 | Outpatient (CLI) | payer MEDICARE, OTHER ==
--- NOTE | 2023-11-24 09:51 | Mammography Report ---
BILATERAL DIGITAL SCREENING MAMMOGRAM: 11/23/2023 CLINICAL: Routine screening. Family history of breast cancer. Comparison is made to exams dated: 06/14/2022 mammogram, 12/03/2020 mammogram, 09/20/2019 mammogram, mammogram, 08/02/2017 mammogram, and 08/26/2016 mammogram - [facility]. Both breasts are heterogeneously dense, which may obscure small masses (category c / 51-75% glandular tissue). No significant masses, calcifications, or other findings are seen in either breast. There has been no significant interval change. IMPRESSION: NEGATIVE There is no mammographic evidence of malignancy. A 1 year screening mammogram is recommended. Based on the Tyrer Cuzick model (a risk assessment model) the patient's lifetime risk is 4.6% and her 10 year risk is 0.0%. According to the ACR, ACS, and NCCN guidelines, an annual breast MRI exam brittany g with mammogram is recommended if the patient's lifetime risk is 20% or greater. This exam was interpreted at Station ID: [id number]. NOTE: For mammograms, a report in lay terms will be sent to the patient. Approximately 15% of breast malignancies will not be visualized mammographically. In the management of a palpable breast mass, a negative mammogram must not discourage biopsy of a clinically suspicious lesion. Electronically Signed By: Dimitry dee/tate:11/23/2023 10:59:21 letter sent: No_Letter ACR BI-RADS Category 1: Negative 3341F PARENCHYMAL PATTERN: (D) - The breast(s) demonstrate(s) heterogeneously dense fibroglandular tejinder gonzalez. BI-RADS CATEGORY: (1) - 1 RECOMMENDATION: (ANNUAL) - Recommend routine annual screening mammography. [id number] 1 year screening LATERALITY: (B)
== END 2023-11-23 10:22 | disposition home or self-care (01) ==
LOC: DI.N 10:21
DX: Z12.31 Encounter for screening mammogram for malignant neoplasm of breast (principal); Z80.3 Family history of malignant neoplasm of breast; R92.333 Mammographic heterogeneous density, bilateral breasts

== ENCOUNTER 2023-11-23 10:53 | Outpatient (CLI) | payer MEDICARE, OTHER ==
[2023-11-23 17:38] LABS: BASOPHILS # (AUTO) 0.1 10^3/uL (0.0-0.1); BASOPHILS % (AUTO) 0.9 %; EOSINOPHILS # (AUTO) 0.2 10^3/uL (0.0-0.7); EOSINOPHILS % (AUTO) 3.8 %; HCT - HEMATOCRIT 38.5 % (37.0-47.0); HGB - HEMOGLOBIN 12.6 g/dL (12.0-16.0); LYMPHOCYTES # (AUTO) 1.5 10^3/uL (1.5-3.5); LYMPHOCYTES % (AUTO) 27.7 %; MEAN CORPUSCULAR HEMOGLOBIN 31.7 pg (27.0-31.0); MEAN CORPUSCULAR HGB CONC 32.7 g/dL (32.0-36.0); MEAN CORPUSCULAR VOLUME 96.7 fL (81.0-99.0); MONOCYTES # (AUTO) 0.5 10^3/uL (0.0-1.0); MONOCYTES % (AUTO) 9.6 %; NEUTROPHILS # (AUTO) 3.1 10^3/uL (1.5-6.6); NEUTROPHILS % (AUTO) 57.8 %; PLT - PLATELET COUNT 230 10^3/uL (130-450); RED BLOOD COUNT 3.98 10^6/uL (4.20-5.40); RED CELL DISTRIBUTION WIDTH 12.8 % (12.0-15.0); WHITE BLOOD COUNT 5.3 x10^3/uL (4.8-10.8)
[2023-11-23 18:00] LABS: ALBUMIN 4.5 g/dL (3.2-5.5); ALBUMIN/GLOBULIN RATIO 1.3 (1.0-2.2); ALKALINE PHOSPHATASE 40 IU/L (42-121); ALT ALANINE AMINOTRANSFERASE 15 IU/L (10-60); AST ASPARTATE AMINOTRANSFERASE 19 IU/L (10-42); BILIRUBIN,TOTAL 0.6 mg/dL (0.2-1.0); BUN - BLOOD UREA NITROGEN 19 mg/dL (6-20); CALCIUM 9.4 mg/dL (8.5-10.3); CARBON DIOXIDE - CO2 25 mmol/L (21-32); CHLORIDE 108 mmol/L (101-111); CHOL/HDL RATIO 3.3 (<4.4); CHOLESTEROL 170 mg/dL; CREATININE 0.6 mg/dL (0.6-1.3); GFR - MDRD 96 (>89); GLUCOSE 103 mg/dL (74-104); HDL CHOLESTEROL 52 mg/dL; LDL CHOLESTEROL,CALCULATED 93 mg/dL; LDL/HDL RATIO 1.8 (<4.4); POTASSIUM 3.9 mmol/L (3.5-4.5); SODIUM 140 mmol/L (135-145); TRIGLYCERIDES 127 mg/dL (48-352); VLDL CHOLESTEROL 25 mg/dL
== END 2023-11-23 10:54 | disposition home or self-care (01) ==
LOC: LAB.N 10:53
PROVIDERS: ATTEND Physician Assistant
DX: I10 Essential (primary) hypertension (principal); E78.5 Hyperlipidemia, unspecified
CPT/HCPCS: 36415; 80053; 80061; 83721; 85025